=== PATIENT | female | born 1960 ===

== ENCOUNTER 2021-12-26 05:24 | Day surgery (SDC) | payer OTHER ==
[~2021-12-26] VITALS: Ht 154.9 cm; Wt 84.8 kg
[2021-12-26] MEDS ORDERED: NAPR500T14 PO (09:03)
[2021-12-26] MEDS ORDERED: Tylenol #3 PO (09:03)
== END 2021-12-26 11:30 | disposition home or self-care (01) ==
LOC: CIR.AMB 05:24
PROVIDERS: ATTEND Obstetrics & Gynecology
DX: D27.1 Benign neoplasm of left ovary (principal); E66.9 Obesity, unspecified